=== PATIENT | female | born 1980 | race Caucasian/White ===

== ENCOUNTER 2016-08-11 11:15 | Inpatient (IN) | payer MEDICAID ==
[~2016-08-11] VITALS: Ht 152.4 cm; Wt 85.0 kg
[~2016-08-11 11:15] MED LIST: ADDERALL10 MG PO; BACTRIM DS 8001 TAB PO; EFFEXOR XR75 MG/CAP PO; LEVAQUIN 2250 MG/TAB PO; NORCO 325 MG-7.1 TAB PO; PYRIDIUM200 M1 PO; ZOFRAN ODT4 MG PO
[2016-08-12] VITALS (18 sets, daily range): BP systolic 92–113; BP diastolic 41–82; PULSE 60–80; TEMP 97.4–98.4
[2016-08-12 11:09] LABS: BASO % 0.1 % (0.0-2.0); EOS % 0.5 % (0-4.0); LYMPH # 1.5 (1.2-3.4); LYMPH % 18.7 % (20.0-51.0); MEAN CELL VOLUME 84 fl (80.0-100.0); MEAN CORPUSCULAR HGB CONC 33 g/dl (33.0-37.0); MONO # 0.6 (0.1-0.6); MONO % 7.1 % (1.7-9.3); PLATELET COUNT 229 K/mm3 (130-400); RED BLOOD COUNT 3.96 M/mm3 (4.10-5.30); REDCELL DISTRIBUTION WIDTH-CV 14.9 % (11.5-14.5); WHITE BLOOD COUNT 8.2 K/mm3 (4.8-10.8)
[2016-08-12] MEDS ORDERED: PERCOCET 325 MG1 TA2 PO (11:09)
[2016-08-12] MEDS ORDERED: MOTRIN 800800 MG/TAB PO (11:09)
[2016-08-12 11:11] LABS: HEMATOCRIT 33.4 % (37.0-47.0); HEMOGLOBIN 10.9 g/dl (12.5-16.0); MEAN CORPUSCULAR HEMOGLOBIN 28 pg (27.0-31.0)
[2016-08-12] MEDS ORDERED: PRENATAL1 TA7 PO (11:11)
[2016-08-13 00:30] VITALS: BP 132/63; TEMP 97.5
[2016-08-13 08:30] VITALS: BP 118/63; PULSE 67; TEMP 98.3
[2016-08-13 11:09] LABS: HEMATOCRIT 32.5 % (37.0-47.0); HEMOGLOBIN 10.6 g/dl (12.5-16.0)
[2016-08-13 16:00] VITALS: BP 135/70; PULSE 88
[2016-08-13 20:00] VITALS: BP 111/60; PULSE 84; TEMP 97.9
[2016-08-14 08:02] VITALS: BP 131/52; PULSE 83; TEMP 98
[2016-08-14] MEDS ORDERED: IBU800 M1 PO (09:00)
[2016-08-14] MEDS ORDERED: PERCOCET 325 MG1 TA2 PO (09:00)
== END 2016-08-14 12:00 | disposition home or self-care (01) | DRG 766 ==
LOC: OB 08-12 10:13
PROVIDERS: Obstetrics & Gynecology
PROC: 10D00Z1 Extraction of Products of Conception, Low, Open Approach (ICD-10-PCS; principal; 2016-08-12)
DX: O34.211 Maternal care for low transverse scar from previous cesarean delivery (principal); N85.8 Other specified noninflammatory disorders of uterus; O99.013 Anemia complicating pregnancy, third trimester; D64.9 Anemia, unspecified; Z3A.39 39 weeks gestation of pregnancy; Z37.0 Single live birth
CPT/HCPCS: J0690; J1885; J2270; J2405; J2590; J7120